=== PATIENT | female | born 1995 | race Two or more races ===

== ENCOUNTER 2023-07-06 17:13 | Emergency (ER) | payer MEDICAID ==
[~2023-07-06] VITALS: Ht 160 cm; Wt 91.4 kg
[~2023-07-06 17:13] MED LIST: CEFD300C3 PO; FOLI1TAB27 PO; MULT-1085 PO; NOR5T PO; thiamine tablet PO
[2023-07-06 17:37] VITALS: BP 153/106; PULSE 100; RESP 19; TEMP 97.8; O2SAT 96
== END 2023-07-06 22:30 ==
LOC: ER 17:13
DX: F10.129 Alcohol abuse with intoxication, unspecified; F12.90 Cannabis use, unspecified, uncomplicated; Z88.5 Allergy status to narcotic agent; Z79.899 Other long term (current) drug therapy; Y90.9 Presence of alcohol in blood, level not specified
CPT/HCPCS: 99283

== ENCOUNTER 2023-08-20 18:04 | Inpatient (IN) | payer MEDICAID ==
[~2023-08-20] VITALS: Ht 160 cm; Wt 88.5 kg
[2023-08-20 19:46] LABS: BASOPHILS # (AUTO) 0.1 X10'3 (0-0.2); BASOPHILS % (AUTO) 1.4 % (0-1); EOSINOPHILS % (AUTO) 0.6 % (0-6); HEMATOCRIT 33.4 % (35.0-45.0); HEMOGLOBIN 11.5 g/dl (12.0-16.0); LYMPHOCYTES # (AUTO) 2.1 X10'3 (1.1-4.8); LYMPHOCYTES % (AUTO) 44.1 % (21-51); MEAN CORPUSCULAR HEMOGLOBIN 35.7 PG (27.0-31.0); MEAN CORPUSCULAR HGB CONC 34.6 g/dL (33.0-36.5); MEAN CORPUSCULAR VOLUME 103.2 FL (78-98); MEAN PLATELET VOLUME 9.5 FL (7.4-10.4); MONOCYTES # (AUTO) 0.4 X10'3 (0-0.9); MONOCYTES % (AUTO) 9.4 % (2-12); NEUTROPHILS # (AUTO) 2.1 X10'3 (1.8-7.7); NEUTROPHILS % (AUTO) 44.5 % (42-75); PLATELET COUNT 136 X10'3 (140-440); RED BLOOD COUNT 3.23 X10'6 (4.20-5.60); RED CELL DISTRIBUTION WIDTH 13.4 % (11.5-14.5); WHITE BLOOD COUNT 4.8 X10'3 (4.5-11.0)
[2023-08-20 19:55] LABS: ALANINE AMINOTRANSFERASE 249 U/L (12-78); ALBUMIN 2.7 G/DL (3.4-5.0); ALBUMIN/GLOBULIN RATIO 0.7 (1.1-1.5); ALKALINE PHOSPHATASE 206 IU/L (46-116); BILIRUBIN,TOTAL 2.7 MG/DL (0.1-1.0); BLOOD UREA NITROGEN 8 MG/DL (7-18); BUN/CREATININE RATIO 13.3 (10.0-20.0); CALCIUM 8.3 MG/DL (8.5-10.1); CHLORIDE 104 MMOL/L (99-107); GLUCOSE 104 MG/DL (70-104); TOTAL CARBON DIOXIDE 30.7 MMOL/L (24-32); TOTAL PROTEIN 6.4 G/DL (6.4-8.2); eCRCL 113 ML/MIN; eGFR > 90 ML/MIN
[2023-08-20 20:18] LABS: ANION GAP 17 (8-16); BILIRUBIN,DIRECT 1.8 MG/DL (0-0.3); SODIUM 152 MMOL/L (135-145)
[2023-08-20 20:33] LABS: ASPARTATE AMINO TRANSFERASE 701 U/L (10-37)
[2023-08-20] MEDS: thiamine 100mg/ml 2ml inj. IM ONE (20:44)
[2023-08-20 20:48] LABS: PLATELET ESTIMATE DECREASED; TOTAL CELLS COUNTED 100
[2023-08-20 20:49] LABS: LARGE PLATELETS FEW
[2023-08-20 21:05] LABS: MAGNESIUM 0.7 MG/DL (1.5-2.4); POTASSIUM 2.7 MMOL/L (3.5-5.1)
[2023-08-20 21:06] LABS: ETHANOL 462 MG/DL (<10)
[2023-08-20] MEDS: normal saline 1000ML IV soln IVB ONE ×2 (21:25→21:27)
[2023-08-20] MEDS: potassium CL 10mEq/100ml bag 100 ML IV ONE (21:26)
[2023-08-20] MEDS: magnesium 2GM in 50ml NS 50 ML IV ONE ×3 (21:26→23:33)
[2023-08-20 21:45] LABS: LIPASE 45 U/L (16-77)
[2023-08-20] MEDS ORDERED: magnesium 4gm in 100ml NS 100 ML IV PRN (21:45)
[2023-08-20] MEDS: normal saline 1000ml 1,000 ML IV SCH (21:45)
[2023-08-20] MEDS ORDERED: potassium Cl 20 mEq SR tablet PO PRN (21:45)
[2023-08-20] MEDS ORDERED: magnesium 2GM in 50ml NS 50 ML IV PRN (21:45)
[2023-08-20] MEDS: PERFLUTREN PROTEIN-A MICROSPHR (Optison) 0.22 MG/ML 3ML VIAL IV ONE (21:45)
[2023-08-20] MEDS ORDERED: acetaminophen 325mg tablet PO PRN (21:45)
[2023-08-20] MEDS ORDERED: magnesium Cl slow-release 64mg tablet PO PRN (21:45)
[2023-08-20] MEDS ORDERED: AMLO5TAB16 PO (22:13)
[2023-08-20] MEDS ORDERED: PREN-196 PO (22:13)
[2023-08-20] MEDS ORDERED: ATOR20TA66 PO (22:13)
[2023-08-20] MEDS ORDERED: LOSA50TA64 PO (22:13)
[2023-08-20] MEDS: LORazepam 2 mg/ml vial IV PRN (22:32)
[2023-08-20] MEDS: HYDROmorphone/PF 0.2 MG/ML SYRINGE IV PRN (22:32)
[2023-08-21] MEDS: potassium Cl 40MEQ/1/2NS 520ml 520 ML IV PRN (03:12)
[2023-08-21 03:33] LABS: URINE HCG NEGATIVE (NEG)
[2023-08-21 03:35] LABS: BILIRUBIN,URINE NEGATIVE (Neg); CLARITY,URINE CLEAR (Clear); COLOR,URINE YELLOW (Yellow); GLUCOSE, URINE NEGATIVE (Neg); KETONES,URINE NEGATIVE (Neg); LEUKOCYTE ESTERASE ,URINE NEGATIVE (Neg); NITRITES, URINE NEGATIVE (Neg); OCCULT BLOOD,URINE NEGATIVE (Neg); PH,URINE 6.5 (4.8-8.0); PROTEIN,URINE NEGATIVE (Neg)
[2023-08-21 03:36] LABS: BASOPHILS % (AUTO) 1.2 % (0-1); HEMATOCRIT 30.3 % (35.0-45.0); HEMOGLOBIN 10.3 g/dl (12.0-16.0); LYMPHOCYTES % (AUTO) 53.8 % (21-51); MEAN CORPUSCULAR HEMOGLOBIN 35.5 PG (27.0-31.0); MEAN CORPUSCULAR VOLUME 104.4 FL (78-98); MEAN PLATELET VOLUME 9.1 FL (7.4-10.4); MONOCYTES # (AUTO) 0.2 X10'3 (0-0.9); MONOCYTES % (AUTO) 5.2 % (2-12); NEUTROPHILS # (AUTO) 1.4 X10'3 (1.8-7.7); NEUTROPHILS % (AUTO) 38.8 % (42-75); PLATELET COUNT 112 X10'3 (140-440); RED CELL DISTRIBUTION WIDTH 13.3 % (11.5-14.5); WHITE BLOOD COUNT 3.7 X10'3 (4.5-11.0)
[2023-08-21 03:42] LABS: UA COLLECTION TYPE NON-SPECIFIED
[2023-08-21 04:04] LABS: ALANINE AMINOTRANSFERASE 225 U/L (12-78); ALBUMIN 2.4 G/DL (3.4-5.0); ALBUMIN/GLOBULIN RATIO 0.8 (1.1-1.5); ALKALINE PHOSPHATASE 185 IU/L (46-116); ASPARTATE AMINO TRANSFERASE 644 U/L (10-37); BILIRUBIN,TOTAL 2.2 MG/DL (0.1-1.0); BLOOD UREA NITROGEN 4 MG/DL (7-18); BUN/CREATININE RATIO 8.5 (10.0-20.0); CALCIUM 6.9 MG/DL (8.5-10.1); CREATININE 0.47 MG/DL (0.40-0.90); GLUCOSE 83 MG/DL (70-104); LIPASE 30 U/L (16-77); MAGNESIUM 2.3 MG/DL (1.5-2.4); TOTAL CARBON DIOXIDE 28.1 MMOL/L (24-32); TOTAL PROTEIN 5.6 G/DL (6.4-8.2); eCRCL 145 ML/MIN; eGFR > 90 ML/MIN
[2023-08-21 04:04] LABS: URINE AMPHETAMINE SCREEN NEGATIVE (Neg); URINE BARBITUATE SCREEN NEGATIVE (Neg); URINE BENZODIAZEPINES SCREEN NEGATIVE (Neg); URINE CANNABINOID SCREEN NEGATIVE (Neg); URINE COCAINE SCREEN NEGATIVE (Neg); URINE METHADONE SCREEN NEGATIVE (Neg); URINE OPIATE SCREEN NEGATIVE (Neg); URINE PHENCYCLIDINE SCREEN NEGATIVE (Neg)
[2023-08-21 04:20] LABS: ANION GAP 21 (8-16); CHLORIDE 104 MMOL/L (99-107); SODIUM 153 MMOL/L (135-145)
[2023-08-21] MEDS: potassium CL 10mEq/100ml bag 100 ML IV ONE (05:23)
[2023-08-21 05:43] LABS: OCCULT BLOOD STOOL NEGATIVE (Neg)
[2023-08-21 06:01] LABS: PLATELET ESTIMATE DECREASED
[2023-08-21 06:02] LABS: STOMATOCYTES 3+
[2023-08-21] MEDS: heparin, porcine 5000 units/ml vial SQ SCH (07:34)
[2023-08-21] MEDS: thiamine 100mg/ml 2ml inj. IV SCH (07:35)
[2023-08-21] MEDS: K and/or MAG REPLACEMENT MC SCH ×2 (08:00)
[2023-08-21] MEDS: ondansetron/PF 4mg/2ml inj IV PRN (09:02)
[2023-08-21] MEDS: potassium cl 20mEq in 1/2 NS 1,000 ML IV SCH (09:25)
[2023-08-21] MEDS: HYDROmorphone inj. 0.5 MG/0.5 ML DISP.SYRIN IV PRN (12:13)
[2023-08-21] MEDS: chlordiazePOXIDE 25mg capsule PO SCH (14:13)
[2023-08-21] MEDS: LORazepam 2 mg/ml vial IV PRN (15:46)
[2023-08-21 16:22] LABS: ALBUMIN 2.6 G/DL (3.4-5.0); ANION GAP 13 (8-16); BLOOD UREA NITROGEN 4 MG/DL (7-18); BUN/CREATININE RATIO 7.8 (10.0-20.0); CALCIUM 6.4 MG/DL (8.5-10.1); CHLORIDE 103 MMOL/L (99-107); CREATININE 0.51 MG/DL (0.40-0.90); GLUCOSE 89 MG/DL (70-104); POTASSIUM 3.1 MMOL/L (3.5-5.1); SODIUM 145 MMOL/L (135-145); TOTAL CARBON DIOXIDE 28.7 MMOL/L (24-32); eCRCL 133 ML/MIN; eGFR > 90 ML/MIN
[2023-08-21 18:00] VITALS: BP 153/101; PULSE 84; RESP 14; TEMP 97.7; O2SAT 90
[2023-08-21 23:10] VITALS: BP 149/108; PULSE 101; RESP 15; TEMP 97.7; O2SAT 95
[2023-08-22] VITALS (7 sets, daily range): BP systolic 126–160; BP diastolic 64–106; PULSE 92–130; RESP 16–23; TEMP 97.3–99.5; O2SAT 95–98
[2023-08-22] MEDS ORDERED: POTASSIUM BICARB 20meq eff tab 20 MEQ TABLET.EFF PO PRN ×2 (04:12→04:17)
[2023-08-22] MEDS: POTASSIUM BICARB 20meq eff tab 20 MEQ TABLET.EFF PO PRN (04:51)
[2023-08-22 06:41] LABS: BASOPHILS % (AUTO) 0.7 % (0-1); EOSINOPHILS % (AUTO) 0.5 % (0-6); HEMOGLOBIN 10.1 g/dl (12.0-16.0); LYMPHOCYTES # (AUTO) 1.7 X10'3 (1.1-4.8); LYMPHOCYTES % (AUTO) 26.1 % (21-51); MEAN CORPUSCULAR HEMOGLOBIN 35.3 PG (27.0-31.0); MEAN CORPUSCULAR HGB CONC 33.6 g/dL (33.0-36.5); MEAN CORPUSCULAR VOLUME 104.9 FL (78-98); MEAN PLATELET VOLUME 9.2 FL (7.4-10.4); MONOCYTES # (AUTO) 0.6 X10'3 (0-0.9); MONOCYTES % (AUTO) 8.8 % (2-12); NEUTROPHILS # (AUTO) 4.1 X10'3 (1.8-7.7); NEUTROPHILS % (AUTO) 63.9 % (42-75); PLATELET COUNT 98 X10'3 (140-440); RED BLOOD COUNT 2.86 X10'6 (4.20-5.60); RED CELL DISTRIBUTION WIDTH 13.5 % (11.5-14.5); WHITE BLOOD COUNT 6.4 X10'3 (4.5-11.0)
[2023-08-22 07:05] LABS: ALANINE AMINOTRANSFERASE 199 U/L (12-78); ALBUMIN 2.7 G/DL (3.4-5.0); ALBUMIN/GLOBULIN RATIO 0.7 (1.1-1.5); ALKALINE PHOSPHATASE 200 IU/L (46-116); ANION GAP 14 (8-16); ASPARTATE AMINO TRANSFERASE 550 U/L (10-37); BILIRUBIN,TOTAL 4.3 MG/DL (0.1-1.0); BLOOD UREA NITROGEN 3 MG/DL (7-18); BUN/CREATININE RATIO 5.5 (10.0-20.0); CALCIUM 6.1 MG/DL (8.5-10.1); CHLORIDE 99 MMOL/L (99-107); CREATININE 0.55 MG/DL (0.40-0.90); GLUCOSE 98 MG/DL (70-104); POTASSIUM 3.5 MMOL/L (3.5-5.1); SODIUM 140 MMOL/L (135-145); TOTAL CARBON DIOXIDE 27.2 MMOL/L (24-32); TOTAL PROTEIN 6.4 G/DL (6.4-8.2); eCRCL 124 ML/MIN; eGFR > 90 ML/MIN
[2023-08-22 07:12] LABS: MAGNESIUM 0.6 MG/DL (1.5-2.4)
[2023-08-22] MEDS ORDERED: magnesium Cl slow-release 64mg tablet PO PRN (07:35)
[2023-08-22 07:47] LABS: NUCLEATED RED BLOOD CELLS 1 /100WBC (0-0); TOTAL CELLS COUNTED 100
[2023-08-22 07:48] LABS: PLATELET ESTIMATE DECREASED; SMUDGE CELLS FEW; STOMATOCYTES 3+
[2023-08-22] MEDS: LORazepam 1 MG tablet PO STA (07:53)
[2023-08-22] MEDS: multivitamins, therapeutics tablet PO SCH (07:56)
[2023-08-22] MEDS: folic acid 1mg tablet PO SCH (07:56)
[2023-08-22] MEDS: magnesium 2GM in 50ml NS 50 ML IV PRN (07:57)
[2023-08-22] MEDS: LORazepam 1 MG tablet PO PRN (10:07)
[2023-08-22] MEDS: magnesium 4gm in 100ml NS 100 ML IV PRN (14:57)
[2023-08-22] MEDS: HYDROmorphone 1 mg/ml syringe IV PRN (15:08)
[2023-08-22] MEDS: phenobarbital 30mg tablet PO ONE (15:35)
[2023-08-22] MEDS: pantoprazole 40 MG vial IV SCH (20:46)
[2023-08-22] MEDS: chlordiazePOXIDE 25mg capsule PO SCH (20:47)
[2023-08-22] MEDS: phenobarbital 30mg tablet PO SCH (20:47)
[2023-08-23] VITALS (8 sets, daily range): BP systolic 115–135; BP diastolic 66–96; PULSE 58–105; RESP 12–20; TEMP 97.3–99.1; O2SAT 95–100
[2023-08-23 06:26] LABS: BASOPHILS % (AUTO) 0.8 % (0-1); EOSINOPHILS # (AUTO) 0.1 X10'3 (0-0.9); HEMOGLOBIN 11.4 g/dl (12.0-16.0); LYMPHOCYTES # (AUTO) 2.7 X10'3 (1.1-4.8); MEAN PLATELET VOLUME 9.7 FL (7.4-10.4); MONOCYTES # (AUTO) 0.4 X10'3 (0-0.9); MONOCYTES % (AUTO) 6.7 % (2-12); NEUTROPHILS # (AUTO) 3.3 X10'3 (1.8-7.7)
[2023-08-23 06:28] LABS: EOSINOPHILS % (AUTO) 1.3 % (0-6); HEMATOCRIT 33.1 % (35.0-45.0); MEAN CORPUSCULAR HEMOGLOBIN 35.8 PG (27.0-31.0); MEAN CORPUSCULAR HGB CONC 34.5 g/dL (33.0-36.5); MEAN CORPUSCULAR VOLUME 103.6 FL (78-98); NEUTROPHILS % (AUTO) 50.2 % (42-75); PLATELET COUNT 101 X10'3 (140-440); RED CELL DISTRIBUTION WIDTH 13.6 % (11.5-14.5); WHITE BLOOD COUNT 6.5 X10'3 (4.5-11.0)
[2023-08-23 06:46] LABS: ALANINE AMINOTRANSFERASE 242 U/L (12-78); ALBUMIN 2.9 G/DL (3.4-5.0); ALKALINE PHOSPHATASE 232 IU/L (46-116); ANION GAP 10 (8-16); ASPARTATE AMINO TRANSFERASE 749 U/L (10-37); BILIRUBIN,TOTAL 4.9 MG/DL (0.1-1.0); BLOOD UREA NITROGEN 2 MG/DL (7-18); BUN/CREATININE RATIO 3.6 (10.0-20.0); CHLORIDE 100 MMOL/L (99-107); CREATININE 0.55 MG/DL (0.40-0.90); GLUCOSE 91 MG/DL (70-104); LIPASE 17 U/L (16-77); MAGNESIUM 1.2 MG/DL (1.5-2.4); POTASSIUM 3.4 MMOL/L (3.5-5.1); SODIUM 137 MMOL/L (135-145); TOTAL CARBON DIOXIDE 27.5 MMOL/L (24-32); eCRCL 124 ML/MIN; eGFR > 90 ML/MIN
[2023-08-23 06:48] LABS: ALBUMIN/GLOBULIN RATIO 0.8 (1.1-1.5); TOTAL PROTEIN 6.6 G/DL (6.4-8.2)
[2023-08-23 06:53] LABS: CALCIUM 5.9 MG/DL (8.5-10.1)
[2023-08-23 07:10] LABS: NUCLEATED RED BLOOD CELLS 5 /100WBC (0-0); PLATELET ESTIMATE DECREASED; TOTAL CELLS COUNTED 100
[2023-08-23 07:11] LABS: LARGE PLATELETS FEW; POLYCHROMASIA FEW
[2023-08-23] MEDS: potassium Cl 20 mEq SR tablet PO PRN (07:51)
[2023-08-23] MEDS: calcium chloride 100 MG/1 ML inj IV ONE (07:51)
[2023-08-23] MEDS: calcium carbonate 500mg chew tablet PO SCH (07:51)
[2023-08-24] VITALS (9 sets, daily range): BP systolic 97–116; BP diastolic 62–85; PULSE 70–89; RESP 10–25; TEMP 97.5–98.5; O2SAT 95–98
[2023-08-24 06:10] LABS: BASOPHILS % (AUTO) 0.7 % (0-1); EOSINOPHILS # (AUTO) 0.1 X10'3 (0-0.9); EOSINOPHILS % (AUTO) 1.7 % (0-6); HEMOGLOBIN 10.7 g/dl (12.0-16.0); LYMPHOCYTES # (AUTO) 1.6 X10'3 (1.1-4.8); LYMPHOCYTES % (AUTO) 33.4 % (21-51); MEAN CORPUSCULAR HEMOGLOBIN 35.7 PG (27.0-31.0); MEAN CORPUSCULAR HGB CONC 33.6 g/dL (33.0-36.5); MEAN CORPUSCULAR VOLUME 106.2 FL (78-98); MEAN PLATELET VOLUME 9.6 FL (7.4-10.4); MONOCYTES # (AUTO) 0.4 X10'3 (0-0.9); MONOCYTES % (AUTO) 8.6 % (2-12); NEUTROPHILS # (AUTO) 2.6 X10'3 (1.8-7.7); NEUTROPHILS % (AUTO) 55.6 % (42-75); RED BLOOD COUNT 3.01 X10'6 (4.20-5.60); RED CELL DISTRIBUTION WIDTH 13.5 % (11.5-14.5); WHITE BLOOD COUNT 4.6 X10'3 (4.5-11.0)
[2023-08-24 06:34] LABS: ALANINE AMINOTRANSFERASE 206 U/L (12-78); ALBUMIN 2.6 G/DL (3.4-5.0); ALKALINE PHOSPHATASE 183 IU/L (46-116); ANION GAP 9 (8-16); ASPARTATE AMINO TRANSFERASE 527 U/L (10-37); BILIRUBIN,TOTAL 4.3 MG/DL (0.1-1.0); BLOOD UREA NITROGEN 1 MG/DL (7-18); CALCIUM 6.3 MG/DL (8.5-10.1); CHLORIDE 104 MMOL/L (99-107); GLUCOSE 86 MG/DL (70-104); LIPASE 12 U/L (16-77); MAGNESIUM 1.6 MG/DL (1.5-2.4); POTASSIUM 3.7 MMOL/L (3.5-5.1); SODIUM 138 MMOL/L (135-145); TOTAL CARBON DIOXIDE 25.1 MMOL/L (24-32); eCRCL 136 ML/MIN; eGFR > 90 ML/MIN
[2023-08-24 06:36] LABS: ALBUMIN/GLOBULIN RATIO 0.8 (1.1-1.5); TOTAL PROTEIN 5.9 G/DL (6.4-8.2)
[2023-08-24] MEDS: chlordiazePOXIDE 25mg capsule PO SCH (08:35)
[2023-08-24 08:39] LABS: GIANT PLATELET FEW; LARGE PLATELETS FEW; NUCLEATED RED BLOOD CELLS 1 /100WBC (0-0); PLATELET ESTIMATE DECREASED; POLYCHROMASIA FEW; STOMATOCYTES 3+; TOTAL CELLS COUNTED 100
[2023-08-24 08:40] LABS: ANISOCYTOSIS FEW
[2023-08-24 09:36] LABS: PLATELET COUNT 96 X10'3 (140-440)
[2023-08-24] MEDS: nicotine 14mg patch - 24hr TD SCH (15:41)
[2023-08-25 04:57] LABS: BASOPHILS % (AUTO) 0.9 % (0-1); EOSINOPHILS # (AUTO) 0.1 X10'3 (0-0.9); EOSINOPHILS % (AUTO) 1.8 % (0-6); HEMATOCRIT 28.5 % (35.0-45.0); HEMOGLOBIN 9.6 g/dl (12.0-16.0); LYMPHOCYTES # (AUTO) 1.4 X10'3 (1.1-4.8); LYMPHOCYTES % (AUTO) 31.3 % (21-51); MEAN CORPUSCULAR HEMOGLOBIN 35.9 PG (27.0-31.0); MEAN CORPUSCULAR HGB CONC 33.6 g/dL (33.0-36.5); MEAN CORPUSCULAR VOLUME 106.9 FL (78-98); MEAN PLATELET VOLUME 9.7 FL (7.4-10.4); MONOCYTES # (AUTO) 0.5 X10'3 (0-0.9); MONOCYTES % (AUTO) 12.3 % (2-12); NEUTROPHILS # (AUTO) 2.4 X10'3 (1.8-7.7); NEUTROPHILS % (AUTO) 53.7 % (42-75); PLATELET COUNT 102 X10'3 (140-440); RED BLOOD COUNT 2.67 X10'6 (4.20-5.60); RED CELL DISTRIBUTION WIDTH 13.9 % (11.5-14.5); WHITE BLOOD COUNT 4.5 X10'3 (4.5-11.0)
[2023-08-25 05:22] LABS: ALANINE AMINOTRANSFERASE 158 U/L (12-78); ALBUMIN 2.3 G/DL (3.4-5.0); ALKALINE PHOSPHATASE 158 IU/L (46-116); ANION GAP 11 (8-16); ASPARTATE AMINO TRANSFERASE 361 U/L (10-37); BILIRUBIN,TOTAL 4.3 MG/DL (0.1-1.0); BLOOD UREA NITROGEN 0 MG/DL (7-18); CHLORIDE 109 MMOL/L (99-107); CREATININE 0.58 MG/DL (0.40-0.90); GLUCOSE 80 MG/DL (70-104); LIPASE 13 U/L (16-77); POTASSIUM 3.5 MMOL/L (3.5-5.1); SODIUM 143 MMOL/L (135-145); TOTAL CARBON DIOXIDE 22.9 MMOL/L (24-32); eCRCL 117 ML/MIN; eGFR > 90 ML/MIN
[2023-08-25 05:32] LABS: ALBUMIN/GLOBULIN RATIO 0.7 (1.1-1.5); TOTAL PROTEIN 5.6 G/DL (6.4-8.2)
[2023-08-25 06:29] LABS: PLATELET ESTIMATE DECREASED; TOTAL CELLS COUNTED 100
[2023-08-25 06:30] LABS: POLYCHROMASIA FEW
[2023-08-25 07:22] VITALS: RESP 18; O2SAT 98
[2023-08-25 07:44] VITALS: BP 122/89; PULSE 81; RESP 14; TEMP 97.7; O2SAT 99
[2023-08-25] MEDS: haloperidol lactate 5mg/ml inj IM PRN (09:12)
[2023-08-25 15:40] VITALS: BP 115/83; PULSE 91; RESP 22; TEMP 97.8; O2SAT 98
[2023-08-25 18:00] VITALS: BP 114/83; PULSE 96; RESP 18; TEMP 99; O2SAT 99
[2023-08-25 22:00] VITALS: BP 125/95; PULSE 95; RESP 12; TEMP 98.3; O2SAT 95
[2023-08-26] VITALS (8 sets, daily range): BP systolic 104–133; BP diastolic 59–95; PULSE 75–93; RESP 14–19; TEMP 97.4–98.2; O2SAT 96–99
[2023-08-26] MEDS: thiamine 100mg tablet PO SCH (07:59)
[2023-08-26] MEDS ORDERED: folic acid 1mg tablet PO SCH (08:00)
[2023-08-26] MEDS ORDERED: LORazepam 2 mg/ml vial IV PRN (13:05)
[2023-08-26] MEDS: traMADol 50MG tablet PO PRN (13:09)
[2023-08-26] MEDS: LORazepam 1 MG tablet PO PRN (17:40)
[2023-08-26] MEDS: pantoprazole 40mg Tablet.DR PO SCH (19:41)
[2023-08-27 10:00] VITALS: BP 102/60; PULSE 71; RESP 14; TEMP 98.3; O2SAT 99
[2023-08-27 15:00] VITALS: BP 99/67; PULSE 79; RESP 14; TEMP 98.1; O2SAT 96
[2023-08-27 16:14] VITALS: BP 82/60
[2023-08-27 18:00] VITALS: BP 107/68; PULSE 76; RESP 18; TEMP 98.3; O2SAT 98
[2023-08-27 20:00] VITALS: RESP 18; O2SAT 98
[2023-08-27 22:00] VITALS: BP 106/58; PULSE 75; RESP 18; TEMP 96.8; O2SAT 100
[2023-08-28 06:00] VITALS: BP 113/68; PULSE 73; RESP 12; TEMP 98.3; O2SAT 95
[2023-08-28 06:14] LABS: BASOPHILS # (AUTO) 0.1 X10'3 (0-0.2); BASOPHILS % (AUTO) 1.2 % (0-1); EOSINOPHILS # (AUTO) 0.1 X10'3 (0-0.9); EOSINOPHILS % (AUTO) 1.9 % (0-6); HEMATOCRIT 31.1 % (35.0-45.0); HEMOGLOBIN 10.2 g/dl (12.0-16.0); LYMPHOCYTES # (AUTO) 1.7 X10'3 (1.1-4.8); LYMPHOCYTES % (AUTO) 36.5 % (21-51); MEAN CORPUSCULAR HEMOGLOBIN 35.5 PG (27.0-31.0); MEAN CORPUSCULAR HGB CONC 32.9 g/dL (33.0-36.5); MEAN CORPUSCULAR VOLUME 107.8 FL (78-98); MEAN PLATELET VOLUME 9.9 FL (7.4-10.4); MONOCYTES # (AUTO) 0.8 X10'3 (0-0.9); MONOCYTES % (AUTO) 18.5 % (2-12); NEUTROPHILS # (AUTO) 1.9 X10'3 (1.8-7.7); NEUTROPHILS % (AUTO) 41.9 % (42-75); PLATELET COUNT 157 X10'3 (140-440); RED BLOOD COUNT 2.89 X10'6 (4.20-5.60); RED CELL DISTRIBUTION WIDTH 14.1 % (11.5-14.5); WHITE BLOOD COUNT 4.6 X10'3 (4.5-11.0)
[2023-08-28 06:39] LABS: ALANINE AMINOTRANSFERASE 120 U/L (12-78); ALBUMIN 2.6 G/DL (3.4-5.0); ALBUMIN/GLOBULIN RATIO 0.8 (1.1-1.5); ALKALINE PHOSPHATASE 149 IU/L (46-116); ANION GAP 10 (8-16); ASPARTATE AMINO TRANSFERASE 216 U/L (10-37); BILIRUBIN,TOTAL 3.7 MG/DL (0.1-1.0); BLOOD UREA NITROGEN 4 MG/DL (7-18); BUN/CREATININE RATIO 5.2 (10.0-20.0); CALCIUM 8.5 MG/DL (8.5-10.1); CHLORIDE 101 MMOL/L (99-107); CREATININE 0.77 MG/DL (0.40-0.90); GLUCOSE 100 MG/DL (70-104); POTASSIUM 3.2 MMOL/L (3.5-5.1); SODIUM 135 MMOL/L (135-145); TOTAL CARBON DIOXIDE 23.6 MMOL/L (24-32); TOTAL PROTEIN 5.9 G/DL (6.4-8.2); eCRCL 88 ML/MIN; eGFR 88 ML/MIN
[2023-08-28 07:34] LABS: TOTAL CELLS COUNTED 100
[2023-08-28 07:35] LABS: PLATELET ESTIMATE NORMAL; POLYCHROMASIA 1+; TEAR DROP CELLS FEW
[2023-08-28 07:36] LABS: LARGE PLATELETS FEW; STOMATOCYTES 3+
[2023-08-28 08:00] VITALS: RESP 14
[2023-08-28 11:00] VITALS: BP 90/56; PULSE 71; PULSE 93; RESP 14; TEMP 98.4; O2SAT 94
[2023-08-28 18:00] VITALS: BP 96/58; PULSE 72; RESP 18; TEMP 98.2; O2SAT 97
[2023-08-28 22:00] VITALS: BP 114/65; PULSE 82; RESP 18; TEMP 98.5; O2SAT 94
[2023-08-28] MEDS ORDERED: potassium Cl 40MEQ/1/2NS 520ml 520 ML IV PRN ×2 (22:45)
[2023-08-28] MEDS ORDERED: potassium Cl 20 mEq SR tablet PO PRN ×2 (22:45)
[2023-08-29] MEDS: magnesium oxide 400mg tablet PO ONE (00:22)
[2023-08-29 02:40] VITALS: BP 96/56; PULSE 77; RESP 18; TEMP 98.3; O2SAT 93
[2023-08-29 07:00] VITALS: BP 117/84; PULSE 93; RESP 18; TEMP 97.6; O2SAT 91
[2023-08-29] MEDS: K and/or MAG REPLACEMENT MC SCH (08:00)
[2023-08-29 11:00] VITALS: BP 108/63; PULSE 79; RESP 16; TEMP 97.6; O2SAT 96
[2023-08-29 16:00] VITALS: BP 113/71; PULSE 100; RESP 14; TEMP 97.8; O2SAT 92
[2023-08-29 18:00] VITALS: BP 110/57; PULSE 80; TEMP 98.2; O2SAT 94
[2023-08-29 22:20] VITALS: BP 101/72; PULSE 99; RESP 16; TEMP 98.3; O2SAT 92
[2023-08-30 02:01] VITALS: BP 115/79; PULSE 76; RESP 18; TEMP 98.5; O2SAT 95
[2023-08-30 07:00] VITALS: BP 127/79; PULSE 77; RESP 14; TEMP 97.5; O2SAT 93
[2023-08-30 11:00] VITALS: BP 117/80; PULSE 90; RESP 14; TEMP 98.2; O2SAT 92
[2023-08-30] MEDS ORDERED: MULT-1249 PO (13:18)
[2023-08-30] MEDS ORDERED: PANT40TA54 PO (13:18)
== END 2023-08-30 16:03 | disposition home or self-care (01) | DRG 280 ==
LOC: ER 18:05 → ED HOLD 21:50 → UNDOADMIN 22:25 → ED HOLD 22:25 → PCU 3S 08-21 19:30 → ED HOLD 08-21 19:30
PROVIDERS: ADMIT Internal Medicine; ATTEND Family Medicine
DX: K70.10 Alcoholic hepatitis without ascites (principal); F10.231 Alcohol dependence with withdrawal delirium; E87.0 Hyperosmolality and hypernatremia; E87.1 Hypo-osmolality and hyponatremia; E83.42 Hypomagnesemia; E87.6 Hypokalemia; G89.29 Other chronic pain; I10 Essential (primary) hypertension; R74.01 Elevation of levels of liver transaminase levels; D53.9 Nutritional anemia, unspecified; F10.229 Alcohol dependence with intoxication, unspecified; K86.1 Other chronic pancreatitis; Z59.00 Homelessness unspecified; Z88.5 Allergy status to narcotic agent
CPT/HCPCS: 36415; 80048; 80053; 80076; 80305; 80320; 81003; 81025; 82272; 82948; 83605; 83690; 83735; 84132; 85007; 85008; 85025; 93005; 93306; 97161; 97530; 99285; A4314; A4338; A4649; A5200; A6258; C9113; G0378; J1170; J1630; J1644; J2060; J2405; J3411; J3475; J3480; J3490; J7030

== ENCOUNTER 2023-09-02 16:10 | Emergency (ER) | payer MEDICAID ==
[~2023-09-02] VITALS: Ht 160 cm; Wt 100.0 kg
[~2023-09-02 16:10] MED LIST changes: +AMLO5TAB16 PO; +ATOR20TA66 PO; -CEFD300C3 PO; -FOLI1TAB27 PO; +LOSA50TA64 PO; -MULT-1085 PO; +MULT-1249 PO; -NOR5T PO; +PANT40TA54 PO; +PREN-196 PO; -thiamine tablet PO
[2023-09-02 16:31] LABS: BASOPHILS # (AUTO) 0.1 X10'3 (0-0.2); BASOPHILS % (AUTO) 1.6 % (0-1); EOSINOPHILS # (AUTO) 0.1 X10'3 (0-0.9); EOSINOPHILS % (AUTO) 1.6 % (0-6); HEMATOCRIT 37.5 % (35.0-45.0); HEMOGLOBIN 12.4 g/dl (12.0-16.0); LYMPHOCYTES # (AUTO) 1.8 X10'3 (1.1-4.8); LYMPHOCYTES % (AUTO) 24.3 % (21-51); MEAN CORPUSCULAR HEMOGLOBIN 35.4 PG (27.0-31.0); MEAN CORPUSCULAR HGB CONC 33.1 g/dL (33.0-36.5); MEAN CORPUSCULAR VOLUME 107.1 FL (78-98); MEAN PLATELET VOLUME 8.2 FL (7.4-10.4); MONOCYTES # (AUTO) 0.9 X10'3 (0-0.9); MONOCYTES % (AUTO) 12.1 % (2-12); NEUTROPHILS # (AUTO) 4.5 X10'3 (1.8-7.7); NEUTROPHILS % (AUTO) 60.4 % (42-75); PLATELET COUNT 336 X10'3 (140-440); RED CELL DISTRIBUTION WIDTH 13.9 % (11.5-14.5); WHITE BLOOD COUNT 7.4 X10'3 (4.5-11.0)
[2023-09-02 16:53] LABS: ANION GAP 10 (8-16); BLOOD UREA NITROGEN 12 MG/DL (7-18); BUN/CREATININE RATIO 15.2 (10.0-20.0); CALCIUM 8.2 MG/DL (8.5-10.1); CHLORIDE 107 MMOL/L (99-107); CREATININE 0.79 MG/DL (0.40-0.90); GLUCOSE 116 MG/DL (70-104); POTASSIUM 3.3 MMOL/L (3.5-5.1); PRO BRAIN NATRIURETIC PEPTIDE 731 PG/ML (0-125); SODIUM 143 MMOL/L (135-145); eCRCL 86 ML/MIN; eGFR 85 ML/MIN
[2023-09-02 18:53] LABS: D-DIMER 0.78 MG/L FEU (0-0.50)
[2023-09-02 19:24] VITALS: BP 124/52; PULSE 69; RESP 20; TEMP 98; O2SAT 99
[2023-09-02] MEDS ORDERED: CYAN1TAB69 PO (19:27)
== END 2023-09-02 19:26 | disposition home or self-care (01) ==
LOC: ER 16:11
DX: D75.89 Other specified diseases of blood and blood-forming organs (principal); R42 Dizziness and giddiness; F12.90 Cannabis use, unspecified, uncomplicated; F10.90 Alcohol use, unspecified, uncomplicated; Z59.00 Homelessness unspecified; Z79.899 Other long term (current) drug therapy; Z88.5 Allergy status to narcotic agent
CPT/HCPCS: 36415; 71045; 80048; 83880; 84484; 85025; 85379; 93005; 99285

== ENCOUNTER 2023-10-15 21:10 | Emergency (ER) | payer MEDICAID ==
[~2023-10-15] VITALS: Ht 160 cm; Wt 86.1 kg
[~2023-10-15 21:10] MED LIST changes: +CYAN1TAB69 PO
[2023-10-15 21:17] VITALS: TEMP 98
[2023-10-15] MEDS: LidoCAINE 2% Topical Jelly 11mL syringe (UROJET) TOP ONE (21:25)
[2023-10-15 21:45] LABS: BASOPHILS % (AUTO) 0.6 % (0-1); EOSINOPHILS % (AUTO) 0.3 % (0-6); HEMATOCRIT 41.5 % (35.0-45.0); HEMOGLOBIN 14.3 g/dl (12.0-16.0); LYMPHOCYTES # (AUTO) 5.5 X10'3 (1.1-4.8); MEAN CORPUSCULAR HEMOGLOBIN 33.9 PG (27.0-31.0); MEAN CORPUSCULAR HGB CONC 34.4 g/dL (33.0-36.5); MEAN CORPUSCULAR VOLUME 98.6 FL (78-98); MEAN PLATELET VOLUME 8.3 FL (7.4-10.4); MONOCYTES # (AUTO) 0.4 X10'3 (0-0.9); MONOCYTES % (AUTO) 4.4 % (2-12); NEUTROPHILS # (AUTO) 2.4 X10'3 (1.8-7.7); NEUTROPHILS % (AUTO) 28.7 % (42-75); PLATELET COUNT 243 X10'3 (140-440); RED BLOOD COUNT 4.21 X10'6 (4.20-5.60); RED CELL DISTRIBUTION WIDTH 12.6 % (11.5-14.5); WHITE BLOOD COUNT 8.3 X10'3 (4.5-11.0)
[2023-10-15 21:48] LABS: ANION GAP 16 (8-16); BLOOD UREA NITROGEN 10 MG/DL (7-18); BUN/CREATININE RATIO 12.3 (10.0-20.0); CALCIUM 8.6 MG/DL (8.5-10.1); CHLORIDE 108 MMOL/L (99-107); CREATININE 0.81 MG/DL (0.40-0.90); GLUCOSE 96 MG/DL (70-104); POTASSIUM 3.3 MMOL/L (3.5-5.1); SODIUM 148 MMOL/L (135-145); TOTAL CARBON DIOXIDE 23.7 MMOL/L (24-32); eCRCL 84 ML/MIN; eGFR 83 ML/MIN
[2023-10-15] MEDS: LORazepam 2 mg/ml vial ONE (21:50)
[2023-10-15] MEDS: LORazepam 2 mg/ml vial IM ONE (21:51)
[2023-10-15] MEDS: haloperidol lactate 5mg/ml inj IM ONE ×2 (21:54→21:56)
[2023-10-15] MEDS: diphenhydrAMINE 50 mg/ml inj IM ONE ×2 (21:54→21:56)
[2023-10-15 22:18] LABS: ETHANOL 503 MG/DL (<10)
[2023-10-15 22:30] LABS: URINE HCG NEGATIVE (NEG)
[2023-10-15 22:47] LABS: URINE AMPHETAMINE SCREEN NEGATIVE (Neg); URINE BARBITUATE SCREEN NEGATIVE (Neg); URINE BENZODIAZEPINES SCREEN POSITIVE (Neg); URINE CANNABINOID SCREEN NEGATIVE (Neg); URINE COCAINE SCREEN NEGATIVE (Neg); URINE METHADONE SCREEN NEGATIVE (Neg); URINE OPIATE SCREEN NEGATIVE (Neg); URINE PHENCYCLIDINE SCREEN NEGATIVE (Neg)
[2023-10-16 00:30] LABS: PLATELET ESTIMATE NORMAL; TOTAL CELLS COUNTED 100
[2023-10-16 02:31] LABS: BILIRUBIN,URINE SMALL (Neg); CLARITY,URINE SLIGHTLY CLOUDY (Clear); COLOR,URINE AMBER (Yellow); GLUCOSE, URINE NEGATIVE (Neg); KETONES,URINE >=80 mg/dl (Neg); LEUKOCYTE ESTERASE ,URINE NEGATIVE (Neg); NITRITES, URINE NEGATIVE (Neg); OCCULT BLOOD,URINE LARGE (Neg); PROTEIN,URINE 30 mg/dl (Neg); UROBILINOGEN,URINE 0.2 E.U/dL (0.2-1.0)
[2023-10-16 02:37] LABS: UA COLLECTION TYPE FOLEY CATH
[2023-10-16 02:38] LABS: MUCUS STRANDS MANY /LPF (Neg)
[2023-10-16 02:52] LABS: SQUAMOUS EPITHELIAL CELL,UR FEW /LPF (FEW)
[2023-10-16 02:53] LABS: RBC,URINE 50-100 /HPF (0-2); WBC,URINE 0-4 /HPF (0-4)
[2023-10-16 02:57] LABS: BACTERIA,URINE FEW /HPF (Neg)
[2023-10-16] MEDS: ringers solution, lacted 1,000 ML IV ONE (03:21)
[2023-10-16 11:09] VITALS: BP 133/75; PULSE 109; RESP 18; O2SAT 96
== END 2023-10-16 11:12 | disposition home or self-care (01) ==
LOC: ER 21:10
DX: F10.129 Alcohol abuse with intoxication, unspecified (principal); F17.210 Nicotine dependence, cigarettes, uncomplicated; Z59.00 Homelessness unspecified; Z88.8 Allergy status to other drugs, medicaments and biological substances; Z79.899 Other long term (current) drug therapy; Y90.9 Presence of alcohol in blood, level not specified
CPT/HCPCS: 36415; 70450; 71045; 80048; 80305; 80320; 81001; 81025; 82948; 85007; 85025; 93005; 96372; 99285; J1200; J1630; J2060; J7030; J7120; A4314; A4620

== ENCOUNTER 2023-10-19 16:45 | Emergency (ER) | payer MEDICAID ==
[~2023-10-19] VITALS: Ht 167.6 cm; Wt 90.9 kg
[2023-10-19 16:48] VITALS: BP 143/105; PULSE 78; RESP 18; TEMP 97.8; O2SAT 98
== END 2023-10-19 18:57 | disposition left against medical advice (07) ==
LOC: ER 16:47
DX: F10.129 Alcohol abuse with intoxication, unspecified (principal); Z53.21 Procedure and treatment not carried out due to patient leaving prior to being seen by health care provider; R42 Dizziness and giddiness; R47.81 Slurred speech; Y90.9 Presence of alcohol in blood, level not specified
CPT/HCPCS: 99281

== ENCOUNTER 2024-04-13 10:33 | Emergency (ER) | payer MEDICAID ==
[~2024-04-13] VITALS: Ht 160 cm; Wt 99.2 kg
[2024-04-13 10:41] VITALS: BP 143/91; PULSE 98; RESP 18; TEMP 97; O2SAT 95
[2024-04-13 11:11] LABS: URINE HCG NEGATIVE (NEG)
[2024-04-13 11:12] LABS: BILIRUBIN,URINE NEGATIVE (Neg); CLARITY,URINE CLEAR (Clear); COLOR,URINE STRAW (Yellow); GLUCOSE, URINE NEGATIVE (Neg); KETONES,URINE NEGATIVE (Neg); LEUKOCYTE ESTERASE ,URINE NEGATIVE (Neg); NITRITES, URINE NEGATIVE (Neg); OCCULT BLOOD,URINE NEGATIVE (Neg); PH,URINE 6.5 (4.8-8.0); PROTEIN,URINE NEGATIVE (Neg); UROBILINOGEN,URINE 0.2 E.U/dL (0.2-1.0)
[2024-04-13 11:14] LABS: UA COLLECTION TYPE CLN CATCH MIDSTREAM
[2024-04-13] MEDS: CefTRIAXone 1000mg IM Kit (w/lidocaine diluent) IM STA (11:30)
[2024-04-13] MEDS: azithromycin 250mg tablet PO ONE (11:31)
[2024-04-13 12:37] LABS: SYPHILIS SCREENING TEST POC NEGATIVE (Negative)
[2024-04-17 05:24] LABS: CHLAMYDIA TRACHOMATIS, NAA Negative (Negative)
== END 2024-04-13 12:13 | disposition home or self-care (01) ==
LOC: ER 10:34
DX: A64 Unspecified sexually transmitted disease (principal); R35.0 Frequency of micturition; F12.90 Cannabis use, unspecified, uncomplicated; Z88.5 Allergy status to narcotic agent; Z79.899 Other long term (current) drug therapy; Z59.00 Homelessness unspecified; Z60.2 Problems related to living alone
CPT/HCPCS: 36415; 81003; 81025; 86592; 87491; 87591; 96372; 99283; J0696

== ENCOUNTER 2024-04-15 14:37 | Emergency (ER) | payer MEDICAID ==
[~2024-04-15] VITALS: Ht 160 cm; Wt 109.1 kg
[2024-04-15 14:42] VITALS: BP 160/106; PULSE 110; RESP 18; TEMP 97.4; O2SAT 95
== END 2024-04-15 15:18 | disposition left against medical advice (07) ==
LOC: ER 14:37
DX: Z02.89 Encounter for other administrative examinations (principal); Z88.8 Allergy status to other drugs, medicaments and biological substances; Z53.21 Procedure and treatment not carried out due to patient leaving prior to being seen by health care provider

== ENCOUNTER 2024-04-19 11:17 | Emergency (ER) | payer MEDICAID ==
[~2024-04-19] VITALS: Ht 160 cm; Wt 109.1 kg
[2024-04-19] MEDS ORDERED: penicillin G benzathine 1.2 million unit/2ml syringe IM ONE (11:40)
[2024-04-19] MEDS: PENICILLIN G BENZATHINE 2,400,000 UNIT/4 ML SYRINGE IM ONE (12:26)
[2024-04-19 12:43] VITALS: BP 126/70; PULSE 68; RESP 16; TEMP 97.8; O2SAT 99
== END 2024-04-19 12:43 | disposition home or self-care (01) ==
LOC: ER 11:17
DX: A64 Unspecified sexually transmitted disease (principal); A53.9 Syphilis, unspecified; F10.90 Alcohol use, unspecified, uncomplicated; F12.90 Cannabis use, unspecified, uncomplicated; Z88.5 Allergy status to narcotic agent; Z59.00 Homelessness unspecified; Z60.2 Problems related to living alone; Z79.899 Other long term (current) drug therapy
CPT/HCPCS: 96372; 99283; J0561